=== PATIENT | male | born 1955 | race Caucasian/White ===

== ENCOUNTER 2017-08-30 09:50 | Day surgery (SDC) | payer OTHER ==
[2017-08-30] MEDS ORDERED: PROPOFOL 40 ML (12:42)
== END 2017-08-30 17:18 | disposition home or self-care (01) ==
LOC: GIL 09:50
DX: K31.9 Disease of stomach and duodenum, unspecified (principal); K62.1 Rectal polyp; K21.0 Gastro-esophageal reflux disease with esophagitis; K31.7 Polyp of stomach and duodenum; K64.8 Other hemorrhoids; K64.4 Residual hemorrhoidal skin tags
CPT/HCPCS: 43239; 88305; 88312; 93005